=== PATIENT | female | born 1940 | race Caucasian/White ===

== ENCOUNTER 2021-03-23 16:36 | Inpatient (IN) | payer OTHER, MEDICAID, SELFPAY ==
[~2021-03-23] VITALS: Ht 152.4 cm; Wt 64.0 kg
[~2021-03-23 16:36] MED LIST: ALPR0.5T8 PO; COLL100 PO; DICY20TA55 PO; FAMO40TA7 PO; FENO48TA7 PO; FLUC100T41 PO; HYOS-28 PO; LEVO25TA7 PO; LOM2.5 PO; METO25TA6 PO; MYCOLOG15O TP; OMEP40CA20 PO; ONDA4TAB5 PO; PROC10TA13 PO; TRAM100T34 PO
[2021-03-23 17:06] VITALS: BP_SYST 159
[2021-03-23] MEDS ORDERED: ACETAMINOPHEN 500 MG TABLET ONE (17:19)
--- NOTE | 2021-03-23 19:28 | NUR ---
Patient to ER bed 01 to gown for evaluation. Side rails up.
[2021-03-23 19:33] LABS: MEAN CORPUSCULAR HEMOGLOBIN 25 pg (27-31); MEAN CORPUSCULAR HGB CONC 31 % (32-36); MEAN CORPUSCULAR VOLUME 82 fL (79.0-98.0); PLATELET COUNT (AUTO) 561 K/uL (130-430); RED BLOOD CELL COUNT(AUTO) 2.66 MIL/uL (4.2-6.2); RED CELL DISTRIBUTION WIDTH 41.1 % (9.0-15.0); WHITE BLOOD COUNT (AUTO) 8.9 K/uL (4.8-10.8)
[2021-03-23 19:35] LABS: ANION GAP 7 (5-15); CALCIUM 9.1 mg/dL (8.4-11.0); CHLORIDE 99 mmol/L (98-107); GLUCOSE 115 mg/dL (70-99); SODIUM SERUM 131 mmol/L (136-145); UREA NITROGEN, BLOOD 25 mg/dL (8-21)
[2021-03-23 19:37] LABS: POTASSIUM 5.2 mmol/L (3.5-5.1)
[2021-03-23 19:43] LABS: ALANINE AMINOTRANSFERASE 55 U/L (12-78); ALBUMIN 3.2 g/dL (3.4-4.8); ASPARTATE AMINOTRANSFERASE 51 U/L (10-37); TOTAL BILIRUBIN 0.9 mg/dL (0.0-1.0)
--- NOTE | 2021-03-23 19:54 | NUR ---
Dr Pena evaluating patient at bedside
[2021-03-23 20:10] LABS: BILIRUBIN,URINE NEGATIVE (NEGATIVE); BLOOD, URINE NEGATIVE (NEGATIVE); CLARITY/URINE CLEAR (CLEAR); COLOR,URINE YELLOW (YELLOW); GLUCOSE,URINE NEGATIVE (NEGATIVE); KETONES,URINE NEGATIVE (NEGATIVE); LEUKOCYTE ESTERASE ,URINE NEGATIVE (NEGATIVE); NITRITE, URINE NEGATIVE (NEGATIVE); PROTEIN URINE NEGATIVE (NEGATIVE); UROBILINOGEN,URINE 0.2 (0.2-1.0)
[2021-03-23 20:19] LABS: HEMOGLOBIN 6.7 g/dL (12.0-16.0)
[2021-03-23 20:20] LABS: HEMATOCRIT 21.8 % (36-48)
--- NOTE | 2021-03-23 20:30 | NUR ---
# 22 gauge angiocath placed to right thumb. Use of asceptic technique. Opsite placed over site. Blood return noted. Blood for lab drawn from site. Flushed with 10 cc of normal saline. No evidence of infiltration noted. Patient tolerated well.
[2021-03-23] MEDS ORDERED: VANCOMYCIN HCL 1,000 MG in NS 250 ML IV ONE (21:00)
[2021-03-23] MEDS ORDERED: NOREPINEPHRINE BITARTRATE 4 MG in NS 246 ML IV ONE ×2 (21:00→22:15)
[2021-03-23] MEDS ORDERED: PIPERACILLIN/TAZO 3.375 GM in NS 50 ML IV ONE (21:00)
[2021-03-23] MEDS ORDERED: NOREPINEPHRINE 4 MG/4 ML VIAL IV ONE (21:06)
--- NOTE | 2021-03-23 21:10 | NUR ---
# 20 gauge angiocath placed to LEFT FOREARM. Use of asceptic technique. Opsite placed over site. Blood return noted. Flushed with 10 cc of normal saline. No evidence of infiltration noted. Patient tolerated well.
--- NOTE | 2021-03-23 21:19 | NUR ---
For blood transfusion, consent obtained from the daughter, health teaching provided and verbalized understanding
--- NOTE | 2021-03-23 21:20 | NUR ---
Levophed gtt initiated @ 0.1 mcg/kg/min for low BPs (SBP 70s, MAP less than 65) per orders of doctor Jean. Monitoring BP Q 15 minutes per protocol.
[2021-03-23] MEDS ORDERED: PIPERACILLIN/TAZOBACTAM 3.375 GM/VIAL (ZOSYN) IV ONE (21:56)
[2021-03-23] MEDS ORDERED: NS 500 ML IV ONE (22:15)
[2021-03-23 22:49] LABS: BAND % (MANUAL) 18 % (0-6); LYMPHOCYTES % (MANUAL) 22 % (20-46)
[2021-03-23 22:50] LABS: BASOPHILS % (MANUAL) 0 % (0-2); EOSINOPHILS % (MANUAL) 12 % (0-7); METAMYELOCYTES % 12 % (0-0); MONOCYTES % (MANUAL) 4 % (0-11); MYELOCYTES % 9 % (0-0); PROMYELOCYTES % 3 % (0-0)
[2021-03-23] MEDS ORDERED: LORazepam 1 MG TABLET PO ONE (23:30)
[2021-03-23] MEDS: PANTOPRAZOLE SODIUM 40 MG/VIAL (PROTONIX) IVP SCH (23:31)
[2021-03-23] MEDS ORDERED: LORazepam 1 MG TABLET ONE (23:31)
[2021-03-23 23:36] LABS: CORRECTED WHITE BLOOD COUNT 8.2 K/uL (4.5-11.0)
[2021-03-24 00:01] VITALS: BP_SYST 159
--- NOTE | 2021-03-24 01:03 | NUR ---
Pt laying in gurney, sleeping but arousable. Pt denies any discomfort at the moment. Levophed gtt continues infusing @ 0.29 mcg/kg/min. First unit of PRBCs infusing, pt tolerating well.
[2021-03-24] MEDS: ACETAMINOPHEN 325 MG TABLET PO PRN ×3 (02:16→21:28)
--- NOTE | 2021-03-24 02:30 | NUR ---
1 unit PRBC's infused, for a total of 500 ml. Pt tolerated well. No s/s of reaction noted.
[2021-03-24] MEDS ORDERED: NOREPINEPHRINE 4 MG/4 ML VIAL IV ONE ×2 (03:04→06:23)
[2021-03-24] MEDS ORDERED: cefTRIAXone 2 GM VIAL ONE (03:04)
--- NOTE | 2021-03-24 03:10 | NUR ---
Pt a/o x 4, pt warm touch and diaphoretic. Temperature 103.7, administered PRN acetaminophen and provided cooling measures.
[2021-03-24] MEDS: NACL 0.9% 1,000 ML IV SCH ×3 (03:23→17:03)
[2021-03-24] MEDS: HYDROcodone/ACETAMIN 5-325 MG TAB (NORCO/ VICODIN) PO PRN ×3 (03:36→23:01)
--- NOTE | 2021-03-24 04:00 | NUR ---
Pt a/o x 4. Pt was c/o generalized back and leg pain, 8/10. Administered PRN [place] per SEP. Temperature is 100.9. Levophed gtt continues to infuse @ 0.37 mcg/kg/min.
[2021-03-24] MEDS ORDERED: VANCOMYCIN HCL 1000 MG/VIAL IV ONE (04:07)
[2021-03-24 05:19] VITALS: BP_SYST 114
--- NOTE | 2021-03-24 05:40 | NUR ---
Consent signed per daughter agreeing to administration of blood. Blood has been type and crossmatched. Blood sent from blood bank. Information on unit of blood checked against patient wristband at bedside by two nurses. All information matches. Patient or responsible libertarian informed of potential complications associated with blood transfusion. Informed of possible transfusion reaction symptoms. Aware of need to notify nurse at once of itching, shortness of breath, flushing, feeling of impending doom, or other symptoms not previously present. Vital signs taken within 5 minutes prior to initiation of transfusion. RN will remain with patient for first 15 minutes of transfusion at which time vital signs will be re-assessed.
--- NOTE | 2021-03-24 05:40 | NUR ---
BT INITIATION (2nd unit): Consent signed per daughter agreeing to administration of blood. Blood has been type and crossmatched. Blood sent from blood bank. Information on unit of blood checked against patient wristband at bedside by two nurses. All information matches. Patient or responsible green party informed of potential complications associated with blood transfusion. Informed of possible transfusion reaction symptoms. Aware of need to notify nurse at once of itching, shortness of breath, flushing, feeling of impending doom, or other symptoms not previously present. Vital signs taken within 5 minutes prior to initiation of transfusion. RN will remain with patient for first 15 minutes of transfusion at which time vital signs will be re-assessed.
--- NOTE | 2021-03-24 06:15 | NUR ---
Pt laying in bed, pt sleeping but easily arousable. Pt is tolerating blood transfusion, no s/s of distress noted. Levophed gtt continues to infuse @ 0.31 mcg/kg/min.
--- NOTE | 2021-03-24 07:25 | NUR ---
prbc completed, tolerated well, calm, alert, resp unlabored, skin warm and dry. communicates clearly in full complete senteces, denies cp/sob. angolan primary language
--- NOTE | 2021-03-24 07:40 | NUR ---
LEVO TITRATED TO 0.2MCG/KG/MIN. O2 2L NC, NS @ 100 ML. PT CALM, ALERT, DENIES PAIN
[2021-03-24] MEDS: PANTOPRAZOLE SODIUM 40 MG/VIAL (PROTONIX) IVP SCH ×2 (08:02→21:11)
--- NOTE | 2021-03-24 08:10 | NUR ---
ECHO IN PROGRESS, VSS, NO DISTRESS
--- NOTE | 2021-03-24 08:15 | NUR ---
UPDATE TO FAMILY, QUESTIONS ANSWERED
--- NOTE | 2021-03-24 08:39 | NUR ---
Nutrition Update Sunny Scale 13 noted. Pt admitted for Anemia, Hypotension shock Diet: Clear liquid BMI: 27.3 kg/m2 RD to follow per nutrition care standards.
[2021-03-24 08:42] LABS: ALANINE AMINOTRANSFERASE 43 U/L (12-78); ALBUMIN 2.7 g/dL (3.4-4.8); ANION GAP 11 (5-15); ASPARTATE AMINOTRANSFERASE 41 U/L (10-37); CALCIUM 8.6 mg/dL (8.4-11.0); CHLORIDE 103 mmol/L (98-107); CREATININE 1.32 mg/dL (0.55-1.30); GLUCOSE 170 mg/dL (70-99); POTASSIUM 4.5 mmol/L (3.5-5.1); SODIUM SERUM 136 mmol/L (136-145); TOTAL BILIRUBIN 0.8 mg/dL (0.0-1.0); UREA NITROGEN, BLOOD 20 mg/dL (8-21)
--- NOTE | 2021-03-24 08:45 | NUR ---
MD AT BEDSIDE, UPDATE PROVIDED, ECHO COMPLETED
[2021-03-24 09:17] LABS: HEMATOCRIT 31.6 % (36-48); HEMOGLOBIN 9.9 g/dL (12.0-16.0); MEAN CORPUSCULAR HEMOGLOBIN 27 pg (27-31); MEAN CORPUSCULAR HGB CONC 31 % (32-36); MEAN CORPUSCULAR VOLUME 87 fL (79.0-98.0); PLATELET COUNT (AUTO) 562 K/uL (130-430); RED BLOOD CELL COUNT(AUTO) 3.64 MIL/uL (4.2-6.2); RED CELL DISTRIBUTION WIDTH 31.3 % (9.0-15.0); WHITE BLOOD COUNT (AUTO) 8.9 K/uL (4.8-10.8)
--- NOTE | 2021-03-24 09:25 | NUR ---
REPOSITIONED FOR COMFORT. TOLERATED WELL
[2021-03-24 10:02] LABS: ATYPICAL LYMPHOCYTES % 2 % (0-0); BAND % (MANUAL) 5 % (0-6); BASOPHILS % (MANUAL) 1 % (0-2); EOSINOPHILS % (MANUAL) 20 % (0-7); LYMPHOCYTES % (MANUAL) 16 % (20-46); METAMYELOCYTES % 4 % (0-0); MONOCYTES % (MANUAL) 22 % (0-11); MYELOCYTES % 4 % (0-0)
[2021-03-24 10:03] LABS: CORRECTED WHITE BLOOD COUNT 7.9 K/uL (4.5-11.0)
--- NOTE | 2021-03-24 11:25 | NUR ---
TO BATHROOM BSC, MED BROWN FORMED STOOL
[2021-03-24] MEDS ORDERED: NOREPINEPHRINE BITARTRATE 4 MG in D5W 246 ML IV PRN (12:30)
[2021-03-24] MEDS: NOREPINEPHRINE BITARTRATE 4 MG in NS 246 ML IV PRN ×2 (12:48→18:59)
--- NOTE | 2021-03-24 13:39 | NUR ---
UP TO BSC, STEADY ON HER FEET. NO DISTRESS
--- NOTE | 2021-03-24 14:31 | NUR ---
DAUGHTER AT BEDSIDE, TOLERATING PO WELL
--- NOTE | 2021-03-24 15:16 | NUR ---
PAGE TO HILARIA AT THE REQUEST OF PT'S DAUGHTER.
--- NOTE | 2021-03-24 16:19 | NUR ---
TRANSFERED TO ROOM 5. NO CHANGES IN MENTATION
--- NOTE | 2021-03-24 16:56 | NUR ---
SON AT BEDSIDE, PT CALM ,ALERT, NO CHANGE IN MENTATION
--- NOTE | 2021-03-24 18:30 | NUR ---
SON AT BEDSIDE VISITING, NO DISTRESS, CALM, ALERT, EATING MEAL
--- NOTE | 2021-03-24 19:35 | NUR ---
PATIENT RESTING AT THIS TIME. CURRENTLY LEVO AT 0.2 MCG/KG/MIN. BP 70/38 HR 80. LEVO TITRATED TO 0.23MCG. PT TOLERATING WELL. BP AT 86/38 HR 75. SON AT BEDSIDE AND GIVEN UPDATE ON MOTHERS CONDITION.
--- NOTE | 2021-03-24 21:48 | NUR ---
TEMPERATURE TAKEN 101.2. PATIENT GIVEN PO TYLENOL. ICE PACKS GIVEN. COOLING MEASURES IN PLACE.
--- NOTE | 2021-03-24 21:52 | NUR ---
LEVO TIRTRATED TO 0.26 MCG/KG/MIN. BP 87/38 HR 79. PT TOLERATING WELL. RESTING AND SLEEPING AT THIS TIME.
--- NOTE | 2021-03-24 22:35 | NUR ---
22 G PIV NO LONGER WORKING. PAIN STATED BY PATIENT WHEN FLUSHED. # 20 gauge angiocath placed to RIGHT AC. Use of asceptic technique. Opsite placed over site. Blood return noted. Flushed with 10 cc of normal saline. No evidence of infiltration noted. Patient tolerated well.
--- NOTE | 2021-03-25 | NUR ---
Patient resting quietly. No acute distress noted. Vital signs within normal range. IVF CONTINUED TO INFUSE WITHOUT DIFFICULTIES. BP STABLE.
[2021-03-25] MEDS: PIPERACILLIN/TAZO 2.25G/DEX-IS 50 ML IV SCH ×4 (00:16→17:30)
[2021-03-25] MEDS ORDERED: PIPERACILLIN/TAZOBACTAM 2.25 GM VIAL IV ONE ×3 (00:20→11:13)
--- NOTE | 2021-03-25 03:24 | NUR ---
Patient resting quietly. No acute distress noted. Vital signs within normal range. PATIENT ABLE TO USE BSC WITH NO ISSUES.
[2021-03-25] MEDS: NACL 0.9% 1,000 ML IV SCH ×2 (04:11→11:12)
--- NOTE | 2021-03-25 05:43 | NUR ---
Patient resting quietly. No acute distress noted. Vital signs within normal range. LEVOPHED DECREASED TO 0.23MCG/KG/MIN BP 116/55 HR 72. PT TOLERATING WELL.
--- NOTE | 2021-03-25 06:30 | NUR ---
ASSISTED PATIENT TO BSC. PER PATIENT STATING HAVING SOB THIS MORNING. PATIENT REPOSITIONED AND BED LINEN FIXED. PATIENT STATED HAVING PAIN. PRN [place] GIVEN. REPORT GIVEN TO CAREY HARLEY.
--- NOTE | 2021-03-25 07:11 | NUR ---
RESPIRATORY THERAPIST AT BEDSIDE TO GIVE BREATHING TX.
[2021-03-25] MEDS: ALBUTEROL SULFATE 0.083% 2.5 MG/3 ML VIAL.NEB INH PRN ×3 (07:13→18:21)
--- NOTE | 2021-03-25 07:19 | NUR ---
REPORT GIVEN TO CAREY HARLEY.
[2021-03-25] MEDS: HYDROcodone/ACETAMIN 5-325 MG TAB (NORCO/ VICODIN) PO PRN ×4 (07:23→22:54)
[2021-03-25] MEDS ORDERED: NOREPINEPHRINE 4 MG/4 ML VIAL IV ONE (07:35)
--- NOTE | 2021-03-25 07:35 | NUR ---
EASILY AROUSED, COMMUNICATES CLEARLY IN FULL COMPLETE SENTENCES, AAOX3, DENIES CP/SOB
[2021-03-25] MEDS: NOREPINEPHRINE BITARTRATE 4 MG in NS 246 ML IV PRN (07:42)
--- NOTE | 2021-03-25 07:49 | NUR ---
RT AT BEDSIDE, PT CALM, RESP UNLABORED, SKIN WARM AND DRY
[2021-03-25] MEDS ORDERED: VANCOMYCIN HCL 1000 MG/VIAL IV ONE (08:00)
[2021-03-25] MEDS: VANCOMYCIN HCL 750 MG in NS 250 ML IV SCH (08:01)
[2021-03-25] MEDS: PANTOPRAZOLE SODIUM 40 MG/VIAL (PROTONIX) IVP SCH ×2 (08:05→21:22)
--- NOTE | 2021-03-25 09:45 | NUR ---
DR MANRIQUE IN TO ASSESS
--- NOTE | 2021-03-25 10:21 | NUR ---
REPOSITIONED FOR COMFORT
--- NOTE | 2021-03-25 10:34 | NUR ---
, ALERT, NO DISTRESSDAUGHTER AT BEDSIDE. PT CALM
[2021-03-25 11:02] LABS: ALANINE AMINOTRANSFERASE 26 U/L (12-78); ALBUMIN 2.2 g/dL (3.4-4.8); ANION GAP 10 (5-15); ASPARTATE AMINOTRANSFERASE 30 U/L (10-37); CALCIUM 8.4 mg/dL (8.4-11.0); CHLORIDE 106 mmol/L (98-107); CREATININE 0.99 mg/dL (0.55-1.30); GLUCOSE 140 mg/dL (70-99); POTASSIUM 3.8 mmol/L (3.5-5.1); SODIUM SERUM 136 mmol/L (136-145); TOTAL BILIRUBIN 1.5 mg/dL (0.0-1.0); UREA NITROGEN, BLOOD 15 mg/dL (8-21)
--- NOTE | 2021-03-25 11:32 | NUR ---
RT AT BEDSIDE, PT CALM, ALERT, FAMILY AT BEDSIDE
[2021-03-25 11:59] LABS: HEMATOCRIT 27.5 % (36-48); HEMOGLOBIN 8.8 g/dL (12.0-16.0); MEAN CORPUSCULAR HEMOGLOBIN 28 pg (27-31); MEAN CORPUSCULAR HGB CONC 32 % (32-36); MEAN CORPUSCULAR VOLUME 87 fL (79.0-98.0); PLATELET COUNT (AUTO) 487 K/uL (130-430); RED BLOOD CELL COUNT(AUTO) 3.17 MIL/uL (4.2-6.2); WHITE BLOOD COUNT (AUTO) 6.4 K/uL (4.8-10.8)
--- NOTE | 2021-03-25 12:40 | NUR ---
LINEN CHANGE, REPOSITIONED FOR COMFORT, LT LYING POSITION
[2021-03-25] MEDS: ACETAMINOPHEN 325 MG TABLET PO PRN ×2 (12:58→18:56)
[2021-03-25 13:01] LABS: BAND % (MANUAL) 5 % (0-6); BASOPHILS % (MANUAL) 0 % (0-2); LYMPHOCYTES % (MANUAL) 24 % (20-46); METAMYELOCYTES % 4 % (0-0); MYELOCYTES % 2 % (0-0)
[2021-03-25 13:03] LABS: EOSINOPHILS % (MANUAL) 16 % (0-7); MONOCYTES % (MANUAL) 19 % (0-11)
--- NOTE | 2021-03-25 14:23 | NUR ---
DAUGHTER AT BEDSIDE. PT CALM AND ALERT
--- NOTE | 2021-03-25 15:10 | NUR ---
Levophed drip titrated down to 0.02 mcg/kg/min. Current BP 131/46 pt is tolerating drip well.
--- NOTE | 2021-03-25 16:46 | NUR ---
Dietitian Recommendations * Recommend continuing clear liquid diet * Consider advance diet if/when medically appropriate (2 gm Na diet) * Encourage increase PO intakes LP, RD Please refer to Nutrition Assessment for details. Addendum: 03/25/21 at [address] Amended: Links added.
--- NOTE | 2021-03-25 17:15 | NUR ---
LEVOPHED TURNED OFF 137/59 HR 88
--- NOTE | 2021-03-25 17:34 | NUR ---
SON AT BEDSIDE, PT CALM, AND VISITING
--- NOTE | 2021-03-25 18:20 | NUR ---
RT CALLED FOR INCREASED WORK OF BREATHING
--- NOTE | 2021-03-25 19:02 | NUR ---
DECREASED WORK OF BREATHING S/P BREATHING TREATMENT. SON AT BEDSIDE
--- NOTE | 2021-03-25 19:28 | NUR ---
assumed care of pt from kenji rothman
--- NOTE | 2021-03-25 19:40 | NUR ---
pt is a&ox4. son is at bedside and helps with the translatuion. pt had a episode of sob but was aided by 15L nrb mask. RT aware
--- NOTE | 2021-03-25 23:07 | NUR ---
pt is asleep in bed. position of comfort. VSS.
[2021-03-26] VITALS (21 sets, daily range): BP systolic 85–168
[2021-03-26] MEDS: NACL 0.9% 1,000 ML IV SCH ×3 (00:05→20:00)
[2021-03-26] MEDS: PIPERACILLIN/TAZO 2.25G/DEX-IS 50 ML IV SCH ×5 (00:07→23:51)
--- NOTE | 2021-03-26 03:01 | NUR ---
PT REQUESTED A BREATHING TREATMENT WHICH SHE SAYS HELPED HER AT 1800. RT CALLED AND NOTIFIED
--- NOTE | 2021-03-26 03:04 | NUR ---
RT AT BEDSIDE
--- NOTE | 2021-03-26 04:58 | NUR ---
PT IS FEELING MUCH BETTER AFTER BREATHING TREATMENT. PT IS SATURATING AT 96+ ON 10L MASK.
[2021-03-26] MEDS: MORPHINE 4 MG INJ. 4 MG/ML VIAL IVP PRN ×2 (05:26→12:11)
--- NOTE | 2021-03-26 05:43 | NUR ---
PT IS FULL CODE
--- NOTE | 2021-03-26 07:15 | NUR ---
Patient will be admitted to care of DR. SWEENEY Admitted to ICU unit. Will go to room 01. Belongings list completed. Complete and up to date summary report printed. SBAR report to be given at bedside with opportunity for questions.
--- NOTE | 2021-03-26 07:25 | NUR ---
Pt arrived in ICU, received report from TELEVISION NEWS PHOTOGRAPHER. Pt in no acute distress. Bed low and locked, all safety precautions in place.
--- NOTE | 2021-03-26 07:51 | NUR ---
CONSULTATION PAGED: PRIORITY: ROUTINE REASON FOR CONSULTATION:SEPSIS WAS CONSULT CALLED:DOUG PERSON WHO WAS NOTIFIED:MACIE CONSULTING PHYSICIAN:KIESHA PENDLETON[DAVID DISPATCHER REFINERY SPECIALTY:INFECIOUS DISEASE DISPATCHER REFINERY PHONE NUMBER:[phone] REQUESTING PHYSIC SHIVA:MINESH KAPADIA
[2021-03-26 07:59] LABS: HEMATOCRIT 28.1 % (36-48); MEAN CORPUSCULAR HEMOGLOBIN 28 pg (27-31); MEAN CORPUSCULAR HGB CONC 32 % (32-36); MEAN CORPUSCULAR VOLUME 86 fL (79.0-98.0); PLATELET COUNT (AUTO) 463 K/uL (130-430); RED BLOOD CELL COUNT(AUTO) 3.25 MIL/uL (4.2-6.2); RED CELL DISTRIBUTION WIDTH 33.3 % (9.0-15.0); RETICULOCYTE COUNT 1.5 % (0.5-1.5); WHITE BLOOD COUNT (AUTO) 6.2 K/uL (4.8-10.8)
[2021-03-26] MEDS: PANTOPRAZOLE SODIUM 40 MG/VIAL (PROTONIX) IVP SCH ×2 (08:30→21:00)
--- NOTE | 2021-03-26 08:30 | NUR ---
Spoke to Dr Marion, notified of change in condition. Received new orders
[2021-03-26 08:32] LABS: TOTAL IRON BIND. CAPACITY 155 ug/dL (250-450)
[2021-03-26] MEDS: VANCOMYCIN HCL 750 MG in NS 250 ML IV SCH (08:34)
--- NOTE | 2021-03-26 08:45 | NUR ---
Dr Menard at bedside, verbal report given. to place new orders.
--- NOTE | 2021-03-26 09:00 | NUR ---
Spoke to pt's daughter (Radha) and phoned consent for PICC line and verified by second RN.
[2021-03-26 09:14] LABS: ALANINE AMINOTRANSFERASE 25 U/L (12-78); ALBUMIN 2.3 g/dL (3.4-4.8); ANION GAP 9 (5-15); ASPARTATE AMINOTRANSFERASE 29 U/L (10-37); CALCIUM 8.9 mg/dL (8.4-11.0); CHLORIDE 106 mmol/L (98-107); CREATININE 0.92 mg/dL (0.55-1.30); GLUCOSE 127 mg/dL (70-99); POTASSIUM 4.1 mmol/L (3.5-5.1); SODIUM SERUM 137 mmol/L (136-145); TOTAL BILIRUBIN 1.3 mg/dL (0.0-1.0); UREA NITROGEN, BLOOD 14 mg/dL (8-21)
--- NOTE | 2021-03-26 09:40 | NUR ---
Dr Campbell making rounds, verbal report given. No new orders
[2021-03-26 09:41] LABS: INR 1.1 (0.8-1.2); PROTHROMBIN TIME 12.1 SECS (9.5-12.5)
--- NOTE | 2021-03-26 09:56 | NUR ---
lighting engineering technician notified of new order. Pt to go to CT for imaging. RN to accompany with patient on monitor.
--- NOTE | 2021-03-26 10:35 | NUR ---
Took pt to CT, pt tolerated well.
[2021-03-26 11:32] LABS: BAND % (MANUAL) 7 % (0-6); BASOPHILS % (MANUAL) 0 % (0-2); EOSINOPHILS % (MANUAL) 15 % (0-7); LYMPHOCYTES % (MANUAL) 11 % (20-46); MONOCYTES % (MANUAL) 14 % (0-11)
[2021-03-26 11:33] LABS: METAMYELOCYTES % 3 % (0-0); MYELOCYTES % 1 % (0-0)
--- NOTE | 2021-03-26 11:39 | NUR ---
PAGED PAGED MINESH KAPADIA AT [phone] SPOKE WITH
--- NOTE | 2021-03-26 11:40 | NUR ---
Pending return call from Dr. Campbell
--- NOTE | 2021-03-26 11:58 | NUR ---
PAGED PAGED ELDA ARIZMENDI AT [phone] SPOKE WITH
--- NOTE | 2021-03-26 12:14 | NUR ---
DR. IBARRA RETURNED MD SILVIA AWARE OF CONTACT INFORMATION FOR PAST TREATING WATER HYDRANT INSTALLER RUSSELL SHEPPARD [phone]
[2021-03-26 13:13] LABS: BILIRUBIN,URINE NEGATIVE (NEGATIVE); CLARITY/URINE CLEAR (CLEAR); COLOR,URINE YELLOW (YELLOW); GLUCOSE,URINE NEGATIVE (NEGATIVE); KETONES,URINE NEGATIVE (NEGATIVE); LEUKOCYTE ESTERASE ,URINE NEGATIVE (NEGATIVE); NITRITE, URINE NEGATIVE (NEGATIVE); PH,URINE 5.5 (5.0-8.0); PROTEIN URINE 1+ (NEGATIVE); UROBILINOGEN,URINE 0.2 (0.2-1.0)
[2021-03-26 13:30] LABS: BLOOD, URINE TRACE (NEGATIVE)
[2021-03-26 13:36] LABS: BACTERIA,URINE MODERATE /HPF (None Seen); WBC,URINE 0-3 /HPF (0-3)
[2021-03-26 13:37] LABS: MUCUS,URINE 1+ /LPF (None Seen)
--- NOTE | 2021-03-26 15:52 | NUR ---
RT NOTES Pt was intubated by dr Marion with 8.0 ETT secured @24cm lipline. Bilateral b/s/chest rise ntd. Colorimetric changed to yellow, mist noted in ETT. Placed pt on vent aC 16 400 +5 100%. performed bedside bronchoscopy soon after intubation, sputum collected during broch. endorsed to rn. Pt. appears to tolerate settings well. Alarms set and audible, resus. bag remains at bedside. vent plugged in red outlet.
--- NOTE | 2021-03-26 15:52 | NUR ---
INTUBATED BY DR. ARRIAGA: DR. ARRIAGA AT BEDSIDE, RAPID INTUBATION INITIATED R/T RESP DISTRESS AND COMPROMISE. PATIENT SEDATED WITH 20MG ETOMIDATE FOLLOW BY 60MG SUCC. PATIENT AIRWAY MAINTAINED BY RT WITH MD FARRAH INSERTED 8.0ETT WITH USE OF VIDEO SCOPE. HOLISTER PLACED AND ETT SECURED, PENDING CHEST X-RAY FOR CONFIRMATION. VENTILATOR SETTINGS PLACED BY .
[2021-03-26] MEDS ORDERED: MORPHINE SULFATE IN 0.9 % NACL 100 ML IV PRN (16:00)
[2021-03-26] MEDS ORDERED: NALOXONE HCL 0.4 MG/ML AMP (NARCAN) IVP PRN ×2 (16:00→16:15)
[2021-03-26] MEDS ORDERED: MIDAZOLAM IN NACL,ISO-OSMOT/PF 100 ML IV ONE (16:07)
[2021-03-26] MEDS ORDERED: MORPHINE SULFATE IN 0.9 % NACL 100 ML IV ONE (16:08)
[2021-03-26] MEDS ORDERED: MIDAZOLAM HCL IN 0.9 % NACL/PF 50 ML IV PRN (16:15)
[2021-03-26] MEDS ORDERED: AMIODARONE HCL 450 MG in D5W 241 ML IV SCH (16:45)
[2021-03-26] MEDS ORDERED: PROPOFOL DRIP 100 ML IV PRN (17:15)
[2021-03-26] MEDS: MIDAZOLAM IN NACL,ISO-OSMOT/PF 100 ML IV PRN (17:21)
[2021-03-26] MEDS: MORPHINE SULFATE IN 0.9 % NACL 100 ML IV PRN (17:22)
[2021-03-26] MEDS ORDERED: FILGRASTIM Non-Formulary 0.48 MG/VIAL SUBCUT ONE (17:30)
[2021-03-26] MEDS ORDERED: PROPOFOL DRIP 100 ML IV ONE (17:36)
[2021-03-26] MEDS ORDERED: TBO-FILGRASTIM 480 MCG/0.8 ML SYRINGE SUBCUT ONE (17:45)
[2021-03-27] VITALS (35 sets, daily range): BP systolic 96–137
[2021-03-27] MEDS ORDERED: AMIODARONE HCL 450 MG/9 ML VIAL IV ONE (00:11)
[2021-03-27] MEDS: PIPERACILLIN/TAZO 2.25G/DEX-IS 50 ML IV SCH ×4 (05:14→23:18)
[2021-03-27] MEDS: NACL 0.9% 1,000 ML IV SCH ×2 (05:16→18:09)
[2021-03-27] MEDS: MORPHINE SULFATE IN 0.9 % NACL 100 ML IV PRN (06:05)
[2021-03-27] MEDS: MIDAZOLAM IN NACL,ISO-OSMOT/PF 100 ML IV PRN (06:07)
--- NOTE | 2021-03-27 07:10 | NUR ---
Opening Note Received SBAR report from night nurse. All cares assumed. Pt lying supine in bed, sedated and intubated. Vent settings; AC 16, TV 400, 100%, PEEP 8.
[2021-03-27 07:32] LABS: HEMATOCRIT 23.4 % (36-48); HEMOGLOBIN 7.2 g/dL (12.0-16.0); MEAN CORPUSCULAR HEMOGLOBIN 28 pg (27-31); MEAN CORPUSCULAR HGB CONC 31 % (32-36); PLATELET COUNT (AUTO) 333 K/uL (130-430); RED BLOOD CELL COUNT(AUTO) 2.63 MIL/uL (4.2-6.2); WHITE BLOOD COUNT (AUTO) 5.4 K/uL (4.8-10.8)
[2021-03-27] MEDS: NOREPINEPHRINE BITARTRATE 4 MG in NS 246 ML IV PRN ×3 (07:36→21:35)
--- NOTE | 2021-03-27 07:54 | NUR ---
RT NOTES FIO2 to 0.80 per titration order. No adverse reactions noted. Will monitor pt. RN at bedside, aware.
[2021-03-27] MEDS ORDERED: SODIUM BICARBONATE 8.4% JECT 50 MEQ/50 ML SYRINGE IVP ONE (08:30)
--- NOTE | 2021-03-27 08:30 | NUR ---
ABG results RT Atiya reported ABG results. Dr. Marion notified and gave verbal orders for 1 amp sodium bicarbonate.
[2021-03-27 08:48] LABS: MEAN CORPUSCULAR VOLUME 89 fL (79.0-98.0)
[2021-03-27] MEDS: PROPOFOL DRIP 100 ML IV PRN ×2 (08:51→18:54)
[2021-03-27 08:52] LABS: ALANINE AMINOTRANSFERASE 18 U/L (12-78); ALBUMIN 1.8 g/dL (3.4-4.8); ANION GAP 9 (5-15); ASPARTATE AMINOTRANSFERASE 21 U/L (10-37); CALCIUM 8.4 mg/dL (8.4-11.0); CHLORIDE 110 mmol/L (98-107); CREATININE 1.46 mg/dL (0.55-1.30); GLUCOSE 89 mg/dL (70-99); POTASSIUM 3.9 mmol/L (3.5-5.1); SODIUM SERUM 140 mmol/L (136-145); TOTAL BILIRUBIN 1.4 mg/dL (0.0-1.0); UREA NITROGEN, BLOOD 23 mg/dL (8-21)
--- NOTE | 2021-03-27 09:00 | NUR ---
Family Family visiting at pt window. Education given regarding isolation precautions while awaiting COVID-19 PCR test. Family given update on pt condition. All questions answered.
--- NOTE | 2021-03-27 09:00 | NUR ---
Restraints Restraints removed. Pt sedated, not pulling at lines/tubes. Will continue to monitor.
--- NOTE | 2021-03-27 09:15 | NUR ---
Dr. Marion at bedside Dr. Marion at bedside to assess pt. Gave SBAR report at bedside to update pt status. Will continue monitoring.
[2021-03-27] MEDS: PANTOPRAZOLE SODIUM 40 MG/VIAL (PROTONIX) IVP SCH ×2 (09:32→21:26)
[2021-03-27] MEDS: ACETAMINOPHEN 325 MG TABLET PO PRN (09:32)
--- NOTE | 2021-03-27 09:45 | NUR ---
RT NOTES FIO2 TO 0.60 per titration order. No adverse reactions noted. Will monitor pt. RN made aware.
[2021-03-27 09:57] LABS: ATYPICAL LYMPHOCYTES % 0 % (0-0); BAND % (MANUAL) 0 % (0-6); BASOPHILS % (MANUAL) 0 % (0-2); EOSINOPHILS % (MANUAL) 10 % (0-7); LYMPHOCYTES % (MANUAL) 20 % (20-46); MONOCYTES % (MANUAL) 10 % (0-11)
[2021-03-27] MEDS: MICAFUNGIN SODIUM 100 MG in NS 100 ML IV SCH (10:36)
[2021-03-27] MEDS ORDERED: NACL 0.9% 1,000 ML IV SCH (12:00)
[2021-03-27 12:06] LABS: FOLATE (FOLIC ACID) >20.0 ng/mL (>3.0)
--- NOTE | 2021-03-27 12:19 | NUR ---
CONSULT NEPHRO. CONSULTING MD: DR. BROWN (DR. FERRER SUBSTATION WIREMAN) PERSON NOTIFIED: GABRIEL DIALED: [phone] ORDERED BY: Nessa FRIED
[2021-03-27] MEDS ORDERED: SOD FERRIC GLUC COMPLEX/SUC 125 MG in NS 100 ML IV SCH (14:00)
[2021-03-27] MEDS ORDERED: NOREPINEPHRINE 4 MG/4 ML VIAL IV ONE (14:47)
[2021-03-27] MEDS ORDERED: ALBUMIN HUMAN 25% 200 ML IV ONE (15:00)
--- NOTE | 2021-03-27 15:35 | NUR ---
RT NOTES FIO2 tO 0.50 PER TITRATION ORDER. RN MADE AWARE
--- NOTE | 2021-03-27 15:41 | NUR ---
Nutrition F/U RD reviewed pt's current EMR record including diet Hx, physician notes, nursing notes, pertinent labs/meds/procedures, care trends, and care activity. 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 Witnessed TF Vital AF 1.2 infusing at 20 ml/hr w/ 891 ml of TF infused, providing 1069 kcal. Ve was 9.28 as seen on vent machine. Primary RN reported that pt was intubated yesterday, and TF was started around 0500 this morning, and at 0800, pt was found to have 110-120 ml GRV. She stated that TF was running at a rate of 10 ml/hr at that point. She stated that she plans to increase TF to goal rate of 30 ml/hr later today. RN also reported plans for nephrology consult d/t pt's low urine output and elevated BUN/CRE. RN also stated that pt has not had a BM on her shift nor reported from supervisor pipe manufacture. She stated that exhibit display representative gave verbal order for water flush of 100 ml Q4h, and that she will input order later today as well if exhibit display representative forgets. Per EMR review, TF Rate: 10 ml 9/3; GRV: 0 ml 9/3; no BM documented yet. Current TF prescription provides (w/ current propofol rate): 1117 kcal/day, 54 gm protein/day, and 584 ml free water/day, which meets 83% of estimated caloric needs and 72% of lower end of estimated protein needs. Pt is not yet meeting nutritional needs. Pertinent Medications: piperacillin/tazobactam IV, protonix IC, morphine, propofol at 9.594 ml/hr (253 kcal/day) Pertinent Labs: H/H 7.2 L/23.4 L, Plt count 333 WNL, BG 89 WNL, ALB 1.8 L, BUN 23 H, CRE 1.46 H Ht: 5' Wt: 141#/64 kg (03/25) -- stable Body Mass Index: 27.53 kg/m2 (normal for geriatric age) %IBW: 141 [place]/Adjusted Body Weight: IBW: 100#/45 kg. Adj IBW (obesity): 110#/50 kg NEW Estimated Energy Expenditure (kcals/day) 1341 kcal/day (REE using PSU d/t critical care, newly intubated -- Ve: 9.28; Temperature: 37.6 degrees C) Estimated Protein Required (g/day) 75-100 gm/day (1.5-2 gm/kg Adj IBW d/t sepsis) NEW Estimated Fluid Required (l/day) 1.3 L/day (1 ml/kcal/day for maintenance) Problem/Etiology/Signs/Symptoms Increased nutritional needs related to metabolic demands as evidenced by estimated nutritional requirements for sepsis. *ongoing Inadequate EN support related to metabolic demands as evidenced by current TF regimen meets <80% of estimated nutritional requirements. *new Expected Outcomes/Goals *MODIFIED* - Monitor appetite and PO intakes w/ goal of pt meeting at least 80% of estimated nutritional needs, labs trending WNL, normal GI function, and skin integrity/wt maintenance Dietitian Recommendations * Recommend Vital AF 1.2 at 30 ml/hr (goal rate), Prosource BID w/ Free Water Flush: 150 ml Q4h via NGT Provides (w/ current propofol rate): 1237 kcal/day, 84 gm protein/day, and 1484 ml free water/day Meets: 92% of estimated caloric needs and 84% of upper end of estimated protein needs Follow Up High Risk: F/U in 2-3 days
--- NOTE | 2021-03-27 16:09 | NUR ---
Dietitian Recommendations * Recommend Vital AF 1.2 at 30 ml/hr (goal rate), Prosource BID w/ Free Water Flush: 150 ml Q4h via NGT Provides (w/ current propofol rate): 1237 kcal/day, 84 gm protein/day, and 1484 ml free water/day Meets: 92% of estimated caloric needs and 84% of upper end of estimated protein needs LP, RD Please refer to Nutrition F/U for details.
--- NOTE | 2021-03-27 19:28 | NUR ---
Closing Note SBAR report given at bedside to night nurse. All cares endorsed. Pt lying supine in bed, sedated, intubated. Vent settings AC 16, TV 400, 50%, PEEP 8.
[2021-03-28] VITALS (19 sets, daily range): BP systolic 103–126
[2021-03-28] MEDS: ACETAMINOPHEN 325 MG TABLET PO PRN (02:58)
[2021-03-28] MEDS: NOREPINEPHRINE BITARTRATE 4 MG in NS 246 ML IV PRN ×2 (03:00→10:45)
[2021-03-28] MEDS: PIPERACILLIN/TAZO 2.25G/DEX-IS 50 ML IV SCH (05:29)
[2021-03-28] MEDS: NACL 0.9% 1,000 ML IV SCH (05:30)
--- NOTE | 2021-03-28 05:37 | NUR ---
0200 TEMP-102.3 TYLENOL 650 MG VIA OGT GIVEN O400 TEMP-98.8
--- NOTE | 2021-03-28 05:38 | NUR ---
LEVOPHED WEAN TO0.1 MCG, DIPRIVAN AT 15 MCG, VERSED AT 3 MG AND MORPHINE GTT AT 2 MG. NO GAG NO COUGH REFLEX. AT THIS TIME. BP MAINTAINING MAP>60-65mmhg
[2021-03-28 06:57] LABS: HEMATOCRIT 24.4 % (36-48); MEAN CORPUSCULAR HEMOGLOBIN 29 pg (27-31); MEAN CORPUSCULAR HGB CONC 31 % (32-36); MEAN CORPUSCULAR VOLUME 92 fL (79.0-98.0); PLATELET COUNT (AUTO) 295 K/uL (130-430); RED BLOOD CELL COUNT(AUTO) 2.64 MIL/uL (4.2-6.2); RED CELL DISTRIBUTION WIDTH 27.6 % (9.0-15.0); WHITE BLOOD COUNT (AUTO) 5.9 K/uL (4.8-10.8)
[2021-03-28 08:29] LABS: ANION GAP 15 (5-15); CALCIUM 8.4 mg/dL (8.4-11.0); CHLORIDE 109 mmol/L (98-107); CREATININE 3.04 mg/dL (0.55-1.30); GLUCOSE 107 mg/dL (70-99); PHOSPHORUS 5.9 mg/dL (2.7-4.5); POTASSIUM 4.5 mmol/L (3.5-5.1); SODIUM SERUM 140 mmol/L (136-145); UREA NITROGEN, BLOOD 37 mg/dL (8-21)
--- NOTE | 2021-03-28 08:35 | NUR ---
ABNORMAL ABG: ABNORMAL ABG REPORTED TO DR ARRIAGA. COTY AT THIS TIME. WILL CONTINUE TO MONITOR.
[2021-03-28] MEDS: PANTOPRAZOLE SODIUM 40 MG/VIAL (PROTONIX) IVP SCH (08:55)
[2021-03-28] MEDS: MICAFUNGIN SODIUM 100 MG in NS 100 ML IV SCH (08:56)
--- NOTE | 2021-03-28 09:19 | NUR ---
RT NOTES Transferred pt from icu 1 to icu3. bagged with 100% O2 via resus. bag to ETT. A/W remained secure/patent. Once in the room, pt back on the vent with same settings. Alarms remained set and audible at nurse's station. vent is plugged in the red outlet. resus. bag at bedside.
[2021-03-28] MEDS ORDERED: MINERAL OIL 30 ML UDC NG SCH (10:00)
[2021-03-28] MEDS ORDERED: NOREPINEPHRINE 4 MG/4 ML VIAL IV ONE (10:36)
[2021-03-28 10:37] LABS: C-REACTIVE PROTEIN QUANT 39.2 mg/dL (0-0.5)
--- NOTE | 2021-03-28 11:35 | NUR ---
COMFORT CARE: DR ARRIAGA SPOKE WITH FAMILY AND AGREED UPON COMFORT CARE. DNR COMFORT CARE PAPERWORK SIGNED. MORPHINE INCREASED AND LEVOPHED STILL RUNNING. ALL OTHER MEDICATIONS AND ORDERS STOPPED. FAMILY AT BEDSIDE. WILL CONTINUE TO MONITOR.
[2021-03-28 11:48] LABS: HEMOGLOBIN 7.5 g/dL (12.0-16.0)
[2021-03-28 11:54] LABS: ERYTHROCYTE SEDIMENTATION RATE 58 MM/HR (0-20)
[2021-03-28] MEDS ORDERED: MORPHINE SULFATE IN 0.9 % NACL 100 ML IV PRN (12:45)
[2021-03-28] MEDS ORDERED: NALOXONE HCL 0.4 MG/ML AMP (NARCAN) IVP PRN (12:45)
--- NOTE | 2021-03-28 13:43 | NUR ---
RT NOTES Pt was extubated and placed on 2L NC per dr's order.
[2021-03-28 14:53] LABS: CORRECTED WHITE BLOOD COUNT 5.6 K/uL (4.5-11.0)
[2021-03-28 14:54] LABS: ATYPICAL LYMPHOCYTES % 0 % (0-0); BAND % (MANUAL) 15 % (0-6); LYMPHOCYTES % (MANUAL) 21 % (20-46); MONOCYTES % (MANUAL) 5 % (0-11)
[2021-03-28 14:55] LABS: BASOPHILS % (MANUAL) 0 % (0-2); EOSINOPHILS % (MANUAL) 18 % (0-7)
--- NOTE | 2021-03-28 18:41 | NUR ---
PT PT IS A DNR STATUS WITH FAMILY PRESENT. WITH 2 RNS PRESENT, ASYSTOLE NOTED ON MONITOR. NO AUDIBLE HEART BEAT. NO SPONTANEOUS RESPIRATIONS OBSERVED. NO AUDIBLE BREATH SOUNDS. PUPILS FIXED AND DILATED. PT PRONOUNCED AT 1841.
--- NOTE | 2021-03-28 19:29 | NUR ---
MDs NOTIFIED OF PATIENT EXPIRATION DR. PATEL [facility] [employer] [phone] SPOKE WITH SHANELLE GARCIAS [phone] SPOKE WITH MARISOL FLORES [phone] SPOKE WITH NIHARIKA DENNIS [phone] SPOKE TO VIVI Addendum: 03/28/21 at 2001 by Afua Amaro ND/ DR. BROWN [phone] SPOKE WITH MAURICIO CHANDLER [phone] SPOKE WITH MAURICIO
--- NOTE | 2021-03-28 19:49 | NUR ---
Expiration Pt is a DNR status. Witnessed asystole on monitor. No audible heartbeat and no spontaneous respirations noted. Pupils fixed and dilated. Pt pronounced and witnessed by 2 RN's. Family at bedside.
[2021-03-29 11:55] LABS: FERRITIN 1433 ng/mL (15-150)
== END 2021-03-28 18:41 | DRG 871 ==
LOC: SED 16:36 → SIC 21:58
PROVIDERS: ADMIT Internal Medicine Hospice and Palliative Medicine; ATTEND Internal Medicine Hospice and Palliative Medicine
PROC: 30233N1 Transfusion of Nonautologous Red Blood Cells into Peripheral Vein, Percutaneous Approach (ICD-10-PCS; principal; 2021-03-24)
PROC: 0BJ08ZZ Inspection of Tracheobronchial Tree, Via Natural or Artificial Opening Endoscopic (ICD-10-PCS; 2021-03-26)
PROC: 5A1945Z Respiratory Ventilation, 24-96 Consecutive Hours (ICD-10-PCS; 2021-03-26)
PROC: 0BH17EZ Insertion of Endotracheal Airway into Trachea, Via Natural or Artificial Opening (ICD-10-PCS; 2021-03-26)
DX: A41.9 Sepsis, unspecified organism (principal); J69.0 Pneumonitis due to inhalation of food and vomit; J96.21 Acute and chronic respiratory failure with hypoxia; R65.21 Severe sepsis with septic shock; E87.1 Hypo-osmolality and hyponatremia; N17.9 Acute kidney failure, unspecified; E87.4 Mixed disorder of acid-base balance; Z99.11 Dependence on respirator [ventilator] status; D46.9 Myelodysplastic syndrome, unspecified; Z20.822 Contact with and (suspected) exposure to COVID-19; E03.9 Hypothyroidism, unspecified; E66.01 Morbid (severe) obesity due to excess calories; E88.09 Other disorders of plasma-protein metabolism, not elsewhere classified; I10 Essential (primary) hypertension; Z85.3 Personal history of malignant neoplasm of breast
CPT/HCPCS: 36415; 36430; 36600; 71045; 76376; 76700-TC; 80048; 80053; 81000; 81003; 82607; 82728; 82746; 82803-TC; 83540; 83550; 83605; 83735; 84100; 85007; 85027; 85044; 85610-TC; 85651-TC; 85730-TC; 86140; 86635; 86694; 86886; 86900; 86901; 86920; 87040-TC; 87070-TC; 87081; 87205-TC; 87305; 87497; 93306; 94002; 94003; 94640; 96365; 99291; C9113; J0696; J1447; J2248; J2270; J2543; J2704; J2916; J3370; J7050; J7060; J7613; P9021; U0003